=== PATIENT | male | born 1930 | race Caucasian/White ===

== ENCOUNTER 2016-07-02 10:44 | Inpatient (IN) ==
[2016-07-02 11:43] LABS: BASO% 0.2 % (0.0-0.8); EOS# 0.11 X1000 (0.0-0.7); EOS% 0.6 % (0.0-10.0); HEMATOCRIT 34.1 % (42.0-52.0); IMM GRAN# 0.06 X1000 (0.0-0.04); IMM GRAN% 0.3 % (0.0-0.5); LYMPH# 1.35 X1000 (1.2-3.4); LYMPH% 7.6 % (20.5-51.1); MANUAL DIFF NEEDED? NO; MCHC 35.2 g/dL (33-37); MCV 99.4 FL (81-99); MONO# 1.07 X1000 (0.11-0.59); MONO% 6.1 % (1.7-9.3); MPV 10.1 FL (7.4-10.4); NEUT% 85.2 % (42.2-75.2); PLT 236 X1000 (130-400); RBC 3.43 XMIL (4.7-6.1)
[2016-07-02 11:48] LABS: INR 1.07; PROTIME 11.3 Seconds (9.2-11.7); PTT 31.2 Seconds (22.0-36.0)
[2016-07-02 11:50] LABS: ALBUMIN 3.4 g/dL (3.5-5.0); MAGNESIUM 2.1 mg/dL (1.5-2.7); POTASSIUM 4.8 mmol/L (3.5-5.1); TOTAL BILIRUBIN 0.53 mg/dL (0.20-1.00); TOTAL PROTEIN 6.9 g/dL (6.3-8.3)
--- NOTE | 2016-07-02 12:42 | Diag Imaging Result Document ---
PROCEDURE NAME: CHEST-PORTABLE - 07/02/2016 AP PORTABLE CHEST, ERECT AT 1130 HOURS: FINDINGS: There is alveolar opacity in the right lower lobe which has worsened considerably since 08/05/2013. There are no more recent chest radiographs. There was no apparent abnormality in the right lower lobe on the CT scan of 01/17/2016. 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 IMPRESSION: Right lower lobe pneumonia.
[2016-07-02] MEDS ORDERED: ROCEPHIN 1 GM/NS 1 GM/50 ML IVPB IV ONE (13:06)
[2016-07-02] MEDS ORDERED: ZITHROMAX 500 MG/NS 500 MG/250 ML IVPB IV ONE (13:06)
[2016-07-02] MEDS ORDERED: LASIX IV ONE (13:07)
[2016-07-02] MEDS ORDERED: NS 1,000 ML IV ONE (13:08)
[2016-07-02] MEDS ORDERED: TORADOL IV PRN (13:08)
--- NOTE | 2016-07-02 13:14 | PROVIDER DOCUMENTATION ---
This chart was entered by John Kinsey Scribe, acting as scribe for Tian Chase MD. HPI-General Adult - General Stated Complaint: GENERALIZED WEAKNESS Time Seen by Provider: 07/02/16 10:44 Source: patient, family Allergies/Adverse Reactions: Patient Allergies Allergy/AdvReac Type Severity Reaction Status Date / Time codeine Allergy Unknown Verified 07/02/16 11:19 cetirizine HCl * AdvReac Unknown Verified 07/02/16 11:19 [From [facility]] Home Medications: Home Medication List Medication Instructions Recorded Confirmed Last Taken Type Aspirin 81 mg PO DAILY 08/02/13 07/02/16 07/01/16 History Brimonidine/Timolol Ophth Soln 1 drop OPH BID 08/02/13 10/26/15 10/26/15 06:30 History [Combigan Ophth Soln] Denosumab [Prolia] 60 mg SQ DIRECTED 08/02/13 10/26/15 06/10/13 History Furosemide [Lasix] 40 mg PO DAILY 08/02/13 07/02/16 07/01/16 History Isosorbide Mononitrate E.r. [Imdur] 60 mg PO DAILY 08/02/13 10/26/15 10/25/15 20 :00 History Leuprolide Acetate [Eligard] 7.5 mg SQ DIRECTED 08/02/13 07/02/16 07/01/16 History Niacin E.r. [Niaspan] 500 mg PO BID 08/02/13 10/26/15 10/25/15 20:00 History Potassium Chloride [Klor-Con 10] 10 meq PO DAILY 08/02/13 07/02/16 07/01/16 History Pravastatin Sodium [Pravachol] 20 mg PO DAILY 08/02/13 07/02/16 07/01/16 History Ranolazine E.r. [Ranexa] 500 mg PO QAM 08/02/13 07/02/16 07/01/16 History Sitagliptin Phosphate [Januvia] 100 mg PO DAILY 08/02/13 07/02/16 07/01/16 History Ubidecarenone/Vitamin E [Co Q-10 1 each PO BID 08/02/13 10/26/15 10/26/15 06:30 History 50 mg Softgel] Alpha Lipoic Acid 100 mg PO BID 10/25/15 10/26/15 10/26/15 06:30 History Amlodipine Besylate [Norvasc] 5 mg PO DAILY 10/25/15 07/02/16 07/01/16 History Apixaban [Eliquis] 2.5 mg PO BID 10/25/15 07/02/16 07/01/16 History Calcium Carbonate [Caltrate 600] 600 mg PO BID 10/25/15 07/02/16 07/01/16 History Enzalutamide [Xtandi] 4 cap PO HS 10/25/15 10/26/15 10/25/15 20:00 History Glipizide 5 mg PO BID 10/25/15 07/02/16 07/01/16 History Multivit-Min/FA/Lycopen/Lutein 1 each PO DAILY 10/25/15 07/02/16 07/01/16 History [Centrum Silver Tablet] Sotalol [Betapace] 80 mg PO BID 10/25/15 07/02/16 07/01/16 History Tamsulosin [Flomax] 0.4 mg PO DAILY 10/25/15 07/02/16 07/01/16 History Valsartan [Diovan] 320 mg PO DAILY 10/25/15 07/02/16 07/01/16 History Brimonidine/Timolol Ophth Soln 1 drop BID 07/02/16 07/02/16 07/01/16 History [Combigan Ophth Soln] - History of Present Illness -Gen Adult Nature of Presenting Problems: patient is a 86 y/o M that presents with one week of cough/congestion, shortness of breath that has gotten worse. Over the past few days patient has had generalized weakness with poor oral intake( fluids and solids). Denies fever /chills, n/v/d, or chest pain Location of Pain/Injury: reports: generalized Pain Radiation: reports: no radiation Quality of Pain: reports: other (weakness) Severity: reports: moderate Onset/Duration: reports: gradual, 1 week ago Timing: reports: still present, constant, getting worse Context/Activities at Onset: reports: none Modifying Factors: improves with: nothing Associated Symptoms: reports: cough, loss of appetite, sinus congestion/drainage , shortness of breath, weakness. denies: back/neck pain, chest pain, diarrhea, dizziness, EENT symptoms, fever/chills, genitourinary problems, nausea, vomiting Similar Symptoms Previously?: No Recently seen or treated by another doctor?: No Review of Systems - Adult - REVIEW OF SYSTEMS - ADULT Constitutional: reports: fatique. denies: chills, fever Eyes: reports: no symptoms reported Ears, Nose, Mouth & Throat: reports: sinus problem. denies: ear discharge, ear pain, throat pain, throat swelling Cardiovascular: denies: chest pain, palpitations, syncope Respiratory: reports: cough, shortness of breath. denies: pleurisy, wheezing Gastrointestinal: reports: poor appetite. denies: abdominal pain, constipation , diarrhea, nausea, vomiting Genitourinary: denies: dysuria, frequency, hematuria, urinary retention Musculoskeletal: reports: muscle weakness Integumentary: reports: no symptoms reported Neurological: reports: no symptoms reported Psychiatric: reports: no symptoms reported Endocrine: reports: no symptoms reported Hematologic/Lymphatic: reports: no symptoms reported Allergic/Immunologic: reports: no symptoms reported All Other Systems: Reviewed and Negative Past History - Adult - PAST MEDICAL HISTORY-ADULT Review of Records: reports: Old Records Reviewed, Nursing Assessment Review, Medications Reviewed Cardiovascular: reports: CHF, HTN, hyperlipidemia, MD Genitourinary: reports: prostate cancer Endocrine/Immune: reports: Diabetes Diabetes controlled by:: PO Meds - PRIOR SURGERIES/PROCEDURES Surgical/Procedure History: reports: CABG - IMMUNIZATION STATUS Childhood Immunizations: See Nurse Assessment Flu Vaccine: See Nurse Assessment - FAMILY HISTORY Family History: reviewed, not pertinent - SOCIAL HISTORY Smoking: non-smoker Living Situation: family Physical Exam-General - PHYSICAL EXAM-ADULT Initial Vital Signs Reviewed: Yes - CONSTITUTIONAL General Appearance: alert, no apparent distress - EYES Eyes: PERRL/EOMI, pink conjunctivae - HEAD, EARS, NOSE, MOUTH & THROAT HENMT: normocephalic/atraumatic, moist mucous membranes, normal ENT inspection - NECK Neck: full range of motion, normal inspection. negative: lymphadenopathy - RESPIRATORY Respiratory: no respiratory distress, no accessory muscle use, rhonchi ( throughout), wheezing (scattered) - CARDIOVASCULAR Cardiovascular: regular rate, rhythm, no edema, no murmur - GASTROINTESTINAL (ABDOMEN) Abdominal Exam: normal bowel sounds, non tender, soft, no organomegaly, no pulsatile mass - MUSCULOSKELETAL Extremity: normal range of motion, normal inspection, no pedal edema, no calf tenderness - SKIN Integumentary: normal color, normal turgor, warm/dry - NEUROLOGIC Neurologic: grossly normal, no motor/sensory deficits - PSYCHIATRIC Psych/Mental Status: normal mood/affect, normal thought content, normal thought process, oriented x 3 Progress - PLAN OF CARE/RESULTS Progress/Plan/Lab Results: Vital Signs Temp Pulse Resp BP Pulse Ox 07/02/16 11:15 44 L 26 H 172/57 95 07/02/16 11:14 98.4 F 45 L 25 H 173/60 94 L codeine Allergy (Verified 07/02/16 11:19) Unknown cetirizine HCl * [From [facility]] Adverse Reaction (Verified 07/02/16 11:19) Unknown Aspirin 81 mg PO DAILY 08/02/13 Brimonidine/Timolol Ophth Soln [Combigan Ophth Soln] 1 drop OPH BID 08/02/13 Denosumab [Prolia] 60 mg SQ DIRECTED 08/02/13 Furosemide [Lasix] 40 mg PO DAILY 08/02/13 Isosorbide Mononitrate E.r. [Imdur] 60 mg PO DAILY 08/02/13 Leuprolide Acetate [Eligard] 7.5 mg SQ DIRECTED 08/02/13 Niacin E.r. [Niaspan] 500 mg PO BID 08/02/13 Potassium Chloride [Klor-Con 10] 10 meq PO DAILY 08/02/13 Pravastatin Sodium [Pravachol] 20 mg PO DAILY 08/02/13 Ranolazine E.r. [Ranexa] 500 mg PO QAM 08/02/13 Sitagliptin Phosphate [Januvia] 100 mg PO DAILY 08/02/13 Ubidecarenone/Vitamin E [Co Q-10 50 mg Softgel] 1 each PO BID 08/02/13 Alpha Lipoic Acid 100 mg PO BID 10/25/15 Amlodipine Besylate [Norvasc] 5 mg PO DAILY 10/25/15 Apixaban [Eliquis] 2.5 mg PO BID 10/25/15 Calcium Carbonate [Caltrate 600] 600 mg PO BID 10/25/15 Enzalutamide [Xtandi] 4 cap PO HS 10/25/15 Glipizide 5 mg PO BID 10/25/15 Multivit-Min/FA/Lycopen/Lutein [Centrum Silver Tablet] 1 each PO DAILY 10/25/15 Sotalol [Betapace] 80 mg PO BID 10/25/15 Tamsulosin [Flomax] 0.4 mg PO DAILY 10/25/15 Valsartan [Diovan] 320 mg PO DAILY 10/25/15 Brimonidine/Timolol Ophth Soln [Combigan Ophth Soln] 1 drop BID 07/02/16 Laboratory 07/02/16 07/02/16 07/02/16 11:09 11:09 11:09 WBC RBC Hgb Hct MCV MCH MCHC RDW Std Deviation Plt Count MPV Immature Gran % (Auto) Neut % (Auto) Lymph % (Auto) [place] % (Auto) Eos % (Auto) Baso % (Auto) Immature Gran # (Auto) Neut # (Auto) Lymph # (Auto) [place] # (Auto) Eos # (Auto) Baso # (Auto) PT 11.3 INR 1.07 PTT (Actin FS) 31.2 Sodium Potassium Chloride Carbon Dioxide Anion Gap BUN Creatinine Estimated GFR/1.73 m2 BUN/Creatinine Ratio Glucose Calculated Osmolality Calcium Magnesium Total Bilirubin AST ALT Alkaline Phosphatase Creatine Kinase Troponin T 0.057 Yyf-[id number]-Oarbuqhbdgq Pept Total Protein Albumin Globulin Albumin/Globulin Ratio Plasma Lactate 1.5 07/02/16 07/02/16 07/02/16 11:09 11:09 11:09 WBC 17.65 H RBC 3.43 L Hgb 12.0 L Hct 34.1 L MCV 99.4 H MCH 35.0 H MCHC 35.2 RDW Std Deviation 14.0 Plt Count 236 MPV 10.1 Immature Gran % (Auto) 0.3 Neut % (Auto) 85.2 H Lymph % (Auto) 7.6 L [place] % (Auto) 6.1 Eos % (Auto) 0.6 Baso % (Auto) 0.2 Immature Gran # (Auto) 0.06 H Neut # (Auto) 15.03 H Lymph # (Auto) 1.35 [place] # (Auto) 1.07 H Eos # (Auto) 0.11 Baso # (Auto) 0.03 PT INR PTT (Actin FS) Sodium 125 L Potassium 4.8 Chloride 87 L Carbon Dioxide 22 L Anion Gap 16 BUN 59 H Creatinine 1.8 H Estimated GFR/1.73 m2 36 BUN/Creatinine Ratio 33 Glucose 201 H Calculated Osmolality 274 Calcium 9.0 Magnesium 2.1 Total Bilirubin 0.53 AST 25 ALT 15 Alkaline Phosphatase 67 Creatine Kinase 92 Troponin T Cyp-[id number]-Seejjjtwgoq Pept 52633 H Total Protein 6.9 Albumin 3.4 L Globulin 3.5 Albumin/Globulin Ratio 1.0 Plasma Lactate Orders Category Date Time Status Cardiac Monitoring DIRECTED Care 07/02/16 11:04 Active Oxygen Therapy- ED Nursing DIRECTED Care 07/02/16 11:04 Active Saline Loc NOW Care 07/02/16 11:04 Active CHEST-PORTABLE [RAD] Stat Exams 07/02/16 11:07 Completed BLOOD CULTURE [BLDCUL] Stat Lab 07/02/16 11:09 Ordered CBC WITH ELECTRONIC DIFF [HEME] Stat Lab 07/02/16 11:09 Completed CK PROFILE [SP CHEM] Stat Lab 07/02/16 11:09 Completed COMPREHENSIVE METABOLIC PANEL [CHEM] Stat Lab 07/02/16 11:09 Completed LACTATE, PLASMA [CHEM] Stat Lab 07/02/16 11:09 Completed MAGNESIUM [CHEM] Stat Lab 07/02/16 11:09 Completed PRO B-NATRIURETIC PEPTIDE Stat Lab 07/02/16 11:09 Completed PROTIME WITH INR [COAG] Stat Lab 07/02/16 11:09 Completed PTT [COAG] Stat Lab 07/02/16 11:09 Completed TROPONIN T Stat Lab 07/02/16 11:09 Completed Azithromycin 500 mg/Ns [Zithromax 500 mg/Ns] Med 07/02/16 13:06 Active 500 mg in 250 ml IV NOW CefTRIAXONE 1 GM/NS [Rocephin 1 gm/Ns] Med 07/02/16 13:06 Active 1 gm in 50 ml IV NOW EKG [EKG] Stat Ther 07/02/16 11:04 Ordered Result Diagrams: 07/02/16 11:09 07/02/16 11:09 - EKG 1 Time of EKG reading by physician:: 11:04 EKG Read and Signed by:: Kolby Zavaleta EKG Interpretation (*Must complete 3 of following elements*): Abnormal Rate: 44 Rhythm: sinus bradycardia with 1st degree av block QRS: RBB, other (left anterior fascicular block) [place] Interval: normal ST Wave: non-specific ST changes - XRAY 1 XRAY Study: Chest Impression: Abnormal XRAY Interpretation: RLL pneumonia - CONSULTS/PCP/HOSPITALIST Notification #1 *Consult/PCP/Hospitalist*: Time Discussed: 13:07 Reason/Comments: CHF , Pneumonia Consult Disposition: Admit Departure - Departure Time of Disposition Decision: 13:07 DIAGNOSIS: RLL pneumonia Qualifiers: Pneumonia type: due to unspecified organism Qualified Code(s): J18.1 - Lobar pneumonia, unspecified organism CHF (congestive heart failure) Qualifiers: Congestive heart failure type: systolic Congestive heart failure chronicity: acute Qualified Code(s): I50.21 - Acute systolic (congestive) heart failure Disposition: ADMITTED INPATIENT 09 Certified Medical Emergency: Emergent Condition: Stable - Critical Care Note Total Time (mins): 35 Critical Care Statement: This patient required my direct personal management to treat or rule out processes, the absence of which, could potentiallly result in sudden, clinically significant life or limb threatening deterioration. This chart was documented by the indicated scribe, (John Kinsey, Scribe) and accurately reflects the services I performed and decisions made by me, Tian Chase MD, as attested by the provider's signature.
--- NOTE | 2016-07-02 13:43 | EKG Report ---
Test Performed on : 07/02/2016 11:04:02 AM Test Reason : Chest Pain Blood Pressure : / mmHG Vent. Rate : 044 BPM Atrial Rate : 044 BPM P-R Int : 268 ms QRS Dur : 140 ms QT Int : 598 ms P-R-T Axes : -21 -48 062 degrees QTc Int : 511 ms Marked sinus bradycardia. with 1st degree AV block. Right bundle branch block Left anterior fascicular block Bifascicular block Inferior infarct (cited on or before 26-OCT-2015) Cannot rule out Anterior infarct , age undetermined Abnormal ECG When compared with ECG of 26-OCT-2015 12:15, premature atrial complexes. are no longer present Minimal criteria for Anterior infarct are now present Unconfirmed Result
[2016-07-02] MEDS ORDERED: DUONEB (A & A) INH SCH (15:30)
[2016-07-02] MEDS: FLOMAX PO SCH (19:30)
--- NOTE | 2016-07-02 20:26 | HISTORY AND PHYSICAL ---
CHIEF COMPLAINT: Cough and generalized weakness. HISTORY OF PRESENT ILLNESS: Mr. Gonzalez is an 86-year-old gentleman with a long history of type 2 diabetes mellitus, atherosclerotic cardiovascular disease, paroxysmal atrial fibrillation and prostate cancer. He was brought to the emergency room by ambulance today after he was too weak to get out of bed. He related an approximately 10-day history of cough, chest congestion and shortness of breath that has been progressively worsening. Up until several days ago he was coughing up some yellowish mucus but has not coughed as much up recently. His appetite has been diminished. He has had very little liquid or solid food in the last 24-36 hours. He denies fever, chills, nausea, vomiting, diarrhea, or chest pain. PAST MEDICAL HISTORY: Positive for hypertension with chronic kidney disease, paroxysmal atrial fibrillation status post cardioversion last November, history of osteoporosis although last DEXA was relatively normal, and a history of prostate cancer PAST SURGICAL HISTORY: Remarkable for CABG in 1994, right total knee arthroplasty in 2013. ALLERGIES: He is allergic to Zyrtec and codeine. HOME MEDICATIONS: Calcium and vitamin D twice a day, Coenzyme Q10 at 50 mg twice a day, Combigan eye drops in the right eye twice a day, Diovan 320 mg daily, Eligard 7.5 mg subcutaneous once a month, Eliquis 2.5 mg twice a day, Flomax 0.4 mg at bedtime, Januvia 100 mg q.a.m., Lasix 40 mg q.a.m., multivitamin 1 daily, Norvasc 5 mg daily, Pravachol 20 mg at bedtime, Prolia 60 mg every 6 months, Ranexa 500 mg q.a.m., Zytiga 1000 mg daily, valproic acid 600 mg twice a day, aspirin 81 mg daily, glipizide 5 mg b.i.d., Imdur 60 mg 1 q.a.m., potassium chloride 10 mEq daily, prednisone 1.25 mg twice a day, sotalol 80 mg 1/2 tablet twice a day. FAMILY HISTORY: Noncontributory. SOCIAL HISTORY: He is and lives with his . He is retired. He does not use alcohol or tobacco. REVIEW OF SYSTEMS: General: No headache, fever, chills, night sweats, or weight loss. 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 Respiratory: As above with frequent cough but no pleuritic chest pain. He has no history of COPD or wheezing. No hemoptysis. Cardiovascular: No recent angina. No palpitations, syncope or near syncope. Gastrointestinal: His appetite has been diminished for several days. No hematemesis, melena or bright red blood per rectum. He does report mild constipation. Genitourinary: No dysuria. He has a history of chronic kidney disease with BUN baseline of 37, creatinine 1.4. Endocrine: No history of thyroid disease. Longstanding diabetes for approximately 20 years. Previous metformin was stopped due to chronic kidney disease. Neurologic: No history of strokes or seizures. Psychiatric: No history of memory or mood disorders. PHYSICAL EXAMINATION: VITAL SIGNS: Temperature 97.8 degrees, blood pressure 164/52, pulse 71 (as low as 44 in the emergency room), respiratory rate 14, O2 saturation 97% on nasal cannula. GENERAL APPEARANCE: Alert, pleasant, conversational elderly gentleman with relatively recent purple ecchymoses on his upper forehead. HEENT: Pupils equal, round, reactive to light. The left cornea is quite cloudy. Extraocular movements are intact. Oropharynx is benign. NECK: Supple. No JVD, thyromegaly or adenopathy. CHEST EXAMINATION: Lungs are clear in the apices but there are a few crackles and some soft musical wheezing in both bases, with expiration. Air movement is good. CARDIOVASCULAR: There is slow regular rhythm with normal S1, S2. No S3, S4, murmurs are appreciated. ABDOMEN: Soft, flat, nontender with active bowel sounds. There is no guarding or rebound tenderness present. Bowel sounds are active. EXTREMITIES: No cyanosis, clubbing, or edema. Toes are pink and warm. NEUROLOGIC EXAMINATION: He is alert. His mental status seems to be normal. Cranial nerve examination is unremarkable. He moves all extremities on command. Gait is not tested. DATABASE: Chest x-ray shows alveolar opacities in the right lower lobe new from chest CT 4 months ago. White blood count 17,600, hemoglobin 12.0, hematocrit 34.1, sodium 125, glucose 201, BUN 59, creatinine 1.8, albumin 3.4, proBNP 13,728. ASSESSMENT: 1. Cough and weakness with chest x-ray evidence of right lower lobe pneumonia. He has been given a dose of Rocephin and started on Zithromax as well. 2. Severe generalized weakness with a history of 2 recent falls during the night. His states that she heard him fall when he got up to go to the bathroom. Today he was too weak for her to get him in the car and she had to call an ambulance to bring him here. 3. Type 2 diabetes mellitus with last A1c approximately 7.7. 4. Atherosclerotic cardiovascular disease with history of atrial fibrillation, currently in sinus rhythm with bradycardia due to the sotalol. His proBNP is quite elevated. A transesophageal echo done prior to his cardioversion showed minimally diminished left ventricular ejection fraction with well-preserved left ventricular function with some left ventricular hypertrophy. I suppose he has chronic diastolic congestive heart failure with possibly an acute component superimposed. I can find no previous proBNP measurements in his hospital record. 5. Metastatic prostate cancer treated by Dr. Crandall and Dr. Joseph, currently being treated with Eligard and Zytiga for castration recurrence. TREATMENT PLAN: Admit for IV fluids and antibiotics. He does seem to have slight worsening of his chronic kidney disease along with mild hyponatremia. I will ask Dr. Bennett to consult on him. cc: Jb Cantrell MD [facility]
[2016-07-02] MEDS: BETAPACE PO SCH (20:29)
[2016-07-02] MEDS: GLUCOTROL PO SCH (20:29)
[2016-07-02] MEDS: ELIQUIS PO SCH (20:29)
[2016-07-02] MEDS: COMBIGAN OPHTH SOLN RIGHT EYE SCH (20:29)
[2016-07-02] MEDS: PATIENT'S OWN MED PO SCH (20:30)
[2016-07-02] MEDS: PRAVACHOL PO SCH (20:30)
[2016-07-03] MEDS: PREDNISONE PO SCH ×2 (05:55→16:40)
[2016-07-03] MEDS: ROCEPHIN 1 GM/NS 1 GM/50 ML IVPB IV SCH (05:55)
[2016-07-03] MEDS ORDERED: NS 1,000 ML ONE (06:00)
[2016-07-03 06:42] LABS: HEMOGLOBIN A1C 7.1 % (4.8-6.0)
[2016-07-03 07:05] LABS: CALCIUM 8.6 mg/dL (8.8-10.2); POTASSIUM 4.1 mmol/L (3.5-5.1)
[2016-07-03] MEDS: FLOMAX PO SCH (08:52)
[2016-07-03] MEDS: NORVASC PO SCH (08:52)
[2016-07-03] MEDS: BETAPACE PO SCH ×2 (08:53→21:37)
[2016-07-03] MEDS: CENTRUM SILVER PO SCH (08:53)
[2016-07-03] MEDS: ELIQUIS PO SCH ×2 (08:53→21:37)
[2016-07-03] MEDS: GLUCOTROL PO SCH ×3 (08:54→21:37)
[2016-07-03] MEDS: RANEXA PO SCH (08:55)
[2016-07-03] MEDS: ASPIRIN PO SCH (08:55)
[2016-07-03] MEDS: JANUVIA PO SCH ×2 (08:55→15:37)
[2016-07-03] MEDS: LASIX PO SCH (08:56)
[2016-07-03] MEDS ORDERED: IMDUR PO SCH (09:00)
[2016-07-03] MEDS: KLOR-CON PO SCH (10:26)
[2016-07-03] MEDS: ZITHROMAX PO SCH (10:27)
[2016-07-03] MEDS: DIOVAN PO SCH (10:27)
[2016-07-03] MEDS: PRAVACHOL PO SCH (10:28)
[2016-07-03] MEDS: COMBIGAN OPHTH SOLN RIGHT EYE SCH ×2 (10:30→21:37)
--- NOTE | 2016-07-03 17:13 | CONSULTATION ---
DATE OF CONSULTATION: 07/03/2016 CHIEF COMPLAINT: Shortness of breath, weakness. HISTORY: [id number]-old male patient of our service. He presented to the Emergency Room on 07/02/2016 with complaints of about several days, probably up to two weeks, of increasing shortness of breath, cough productive of some yellowish phlegm, some weakness. The patient had fallen a couple of times at home. About a month ago, he fell going downstairs to his backyard. He denies having syncope. He had some discomfort in the chest when coughing, however no angina pectoris. Upon presentation to the emergency room, they did a chest x-ray that is suspicious for pneumonia. This was reported by Dr. Sandra. Right lower lobe pneumonia. EKG done on presentation shows sinus bradycardia with a right bundle branch block. The patient has been admitted for management of pneumonia. At the time of initial presentation, they checked several blood markers, including a proBNP that was very high at 13,728. They also checked a troponin level that was 0.057. The patient denies having any swelling of the legs. PAST HISTORY: His past history is positive for paroxysmal atrial fibrillation for a number of years. He has undergone cardioversion in the past. He has had history of coronary heart disease, previous myocardial infarction, hypertension, hyperlipidemia, diabetes mellitus type 2, chronic kidney disease, degenerative joint disease. 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 He has had surgical history positive for coronary bypass in 1994. He had a PABON graft to LAD, vein graft to circumflex. He has had left knee arthroplasty. He has had cardioversion in October of 2015. He has maintained sinus rhythm since then. SOCIAL HISTORY: He is , retired, lives at home, not a smoker. FAMILY HISTORY: Mother and brother had CHF. HOME MEDICATIONS: Home medications at the time of this admission included prednisone 1.25 twice a day, Zytiga 1000 mg at bedtime, Prolia (denosumab) 60 mg as directed subcutaneously, isosorbide mononitrate 60 daily, coenzyme Q10 twice a day, Valsartan 320 daily, Flomax 0.4 mg daily, sotalol 80 twice a day, Januvia 100 daily, Ranexa 500 once a day, pravastatin 20 daily, potassium chloride 10 mEq daily, multivitamins once a day, Eligard 7.5 as directed, furosemide 40 mg daily, calcium carbonate 600 twice a day, aspirin 81 mg daily, apixaban 2.5 twice a day, amlodipine 5 mg daily. ALLERGIES: Patient reports being allergic to codeine and cetirizine. REVIEW OF SYSTEMS: Beyond on what I have reported is really noncontributory. He has not had any angina pectoris, no stroke, no edema. No presyncope. PHYSICAL EXAMINATION: Vital signs: At the time of this admission, blood pressure 163/49, pulse 51, temperature 98.4, respirations 20, weighs 160 pounds. General: He is awake, alert, oriented, in no distress. He has some excoriation on the forehead. His neck veins are not really that prominent. I do not hear cervical bruits. Chest: Chest shows diminished breath sounds, especially in the right lung field. There is no dullness to percussion. There are some crepitations scattered bilaterally. Cardiac: Heart sounds are regular, rhythmic. There is a systolic murmur over the aortic area, 2/6. Abdomen: Soft. There is no hepatomegaly. There are no bruits. No hernia. Extremities: Extremities show no edema. Pulses are diffusely diminished. I do not see any lesions on the legs. Neurological exam: He is awake, alert, oriented x3, follows commands, moves four extremities. LABORATORY: Blood work: Sodium 138, potassium 4.1, BUN 42, creatinine 1.5, chloride 101, carbon dioxide 27. Hemoglobin A1c is 7.1, CK 92, PT 11.2, INR 1.87, white count 17,650, hemoglobin 12.0, platelet count 236,000. IMPRESSION: 1. Patient presenting with increasing dyspnea, cough productive of yellow phlegm, with an abnormal chest x-ray and leukocytosis. All this is consistent with right lower lobe pneumonia. 2. Patient has history of paroxysmal atrial fibrillation, now with sinus bradycardia and right bundle branch block. This is probably secondary to the effect of sotalol. The patient was supposed to be taken 40 mg twice a day; however, he has continued to take 80 mg twice a day. 3. His renal function has decreased. 4. History of hypertension. 5. History of coronary heart disease. Bypass surgery. 6. Chronic kidney disease. 7. History of prostate cancer in the past. RECOMMENDATIONS: At this point in time, I would suggest to cut down sotalol to 40 mg twice a day to minimize the bradycardic effect of this medication. His renal function is impaired, and sotalol is excreted by the kidney. We will monitor his hospital course. At this point in time, I believe that there is no question that he does have pneumonia. We have requested inflammatory markers to double check on it. Sedimentation rate and C-reactive protein are coming. Further advice will be forthcoming. Thank you again for the opportunity to participate in his evaluation. cc: MD Jb Bobby MD
[2016-07-03] MEDS: PATIENT'S OWN MED PO SCH (21:37)
[2016-07-04] MEDS: PREDNISONE PO SCH (05:31)
[2016-07-04] MEDS: ROCEPHIN 1 GM/NS 1 GM/50 ML IVPB IV SCH (05:31)
[2016-07-04 06:12] LABS: MANUAL DIFF NEEDED? NO
[2016-07-04 06:38] LABS: BASO% 0.1 % (0.0-0.8); EOS# 0.12 X1000 (0.0-0.7); EOS% 1.8 % (0.0-10.0); HEMATOCRIT 29.4 % (42.0-52.0); HEMOGLOBIN 10.1 g/dL (14.0-18.0); IMM GRAN# 0.05 X1000 (0.0-0.04); IMM GRAN% 0.7 % (0.0-0.5); LYMPH% 17.8 % (20.5-51.1); MCH 34.7 PG (27-31); MCHC 34.4 g/dL (33-37); MONO# 0.56 X1000 (0.11-0.59); MONO% 8.3 % (1.7-9.3); NEUT% 71.3 % (42.2-75.2); PLT 207 X1000 (130-400); RBC 2.91 XMIL (4.7-6.1)
[2016-07-04 06:45] LABS: MAGNESIUM 2.1 mg/dL (1.5-2.7); POTASSIUM 3.9 mmol/L (3.5-5.1)
--- NOTE | 2016-07-04 06:45 | EKG Report ---
Test Performed on : 07/04/2016 06:09:26 AM Test Reason : bradycardia Blood Pressure : / mmHG Vent. Rate : 054 BPM Atrial Rate : 054 BPM P-R Int : 204 ms QRS Dur : 156 ms QT Int : 532 ms P-R-T Axes : 074 -65 065 degrees QTc Int : 504 ms Sinus bradycardia. Right bundle branch block Left anterior fascicular block Bifascicular block Abnormal ECG When compared with ECG of 02-JUL-2016 11:04, MI interval has decreased Minimal criteria for Anterior infarct are no longer present Confirmed by Tamia AMOR, Jb Li ([id number]) on 07/06/2016 9:23:29 PM
[2016-07-04] MEDS ORDERED: CEFTIN PO SCH (09:00)
[2016-07-04] MEDS: ASPIRIN PO SCH (10:21)
[2016-07-04] MEDS: GLUCOTROL PO SCH (10:22)
[2016-07-04] MEDS: PRAVACHOL PO SCH (10:22)
[2016-07-04] MEDS: ELIQUIS PO SCH (10:23)
[2016-07-04] MEDS: ZITHROMAX PO SCH (10:24)
[2016-07-04] MEDS: JANUVIA PO SCH (10:24)
[2016-07-04] MEDS: DIOVAN PO SCH (10:25)
[2016-07-04] MEDS: BETAPACE PO SCH (10:26)
[2016-07-04] MEDS: FLOMAX PO SCH (10:27)
[2016-07-04] MEDS: LASIX PO SCH (10:28)
[2016-07-04] MEDS: CENTRUM SILVER PO SCH (10:28)
[2016-07-04] MEDS: KLOR-CON PO SCH (10:28)
[2016-07-04] MEDS: NORVASC PO SCH (10:30)
[2016-07-04] MEDS: COMBIGAN OPHTH SOLN RIGHT EYE SCH (10:30)
[2016-07-04] MEDS: RANEXA PO SCH (10:31)
--- NOTE | 2016-07-04 10:34 | DISCHARGE SUMMARY ---
ADMISSION DATE: 07/02/2016 DISCHARGE DATE: 07/04/2016 FINAL DIAGNOSES: 1. Right lower lobe community-acquired pneumonia. 2. Type 2 diabetes mellitus. 3. Atherosclerotic cardiovascular disease with a history of atrial fibrillation. 4. Metastatic prostate cancer. 5. Chronic diastolic congestive heart failure. PRESENT ILLNESS: Mr. Gonzalez is an 86-year-old gentleman, who was brought to the emergency room because he was too weak to get out of bed at home. He also related a 10-day history of progressive cough, chest congestion and shortness of breath, but no fever or chills. PAST MEDICAL HISTORY: Remarkable for hypertension, chronic kidney disease, paroxysmal atrial fibrillation and history of metastatic prostate cancer. PHYSICAL EXAMINATION: Vital Signs: Temperature 97.8 degrees, pulse 44-71. General Appearance: He is an alert, conversational gentleman with pain. Lungs: Remarkable features of the examination were some crackles and soft musical wheezing in both lung bases with expiration. Air movement was good. LABS AND X-RAYS: Chest x-ray showed alveolar opacities in the right lower lobe. White blood count 17,600. BUN 59, creatinine 1.8. ProBNP 13,728. HOSPITAL COURSE: He was admitted to the medical floor, treated with intravenous Zithromax and Rocephin. He was seen by physical therapy due to his generalized weakness and history of falling several times recently at home. His blood sugars were excellent fasting, but approximately 200- 240 in the afternoon after eating. His strength and ability to ambulate improved and he was seen by physical therapy who recommended some home physical therapy as followup. He has a 4-wheeled walker and will continue to use this to reduce his risk of falling. He has an appointment tomorrow to see Dr. Joseph for an Eligard injection and is to keep this appointment. He is return to my office in 1-2 weeks for followup. For review of the probability of some chronic congestive heart failure, he was seen by Dr. Bennett, who reduced his sotalol to 40 mg twice a day. His bradycardia improved. He has a regular signaler in [place] and will continue to see him. DISCHARGE MEDICATIONS: 1. Amlodipine 5 mg daily. 2. Eliquis 2.5 mg twice a day. 3. Aspirin 81 mg daily. 4. Combigan ophthalmic solution 1 drop in the right eye b.i.d. 5. Cefuroxime 250 mg q. 12 hours for 5 days. 6. Furosemide 40 mg q.a.m. 7. Glipizide 5 mg b.i.d. 8. Multivitamins with minerals 1 daily. 9. Zytiga 1000 mg at bedtime. 10. Potassium chloride 10 mEq daily. 11. Pravastatin 20 mg at bedtime. 12. Prednisone 1.25 mg twice a day. 13. Ranexa 500 mg q.a.m. 14. Sitagliptin 100 mg daily. 15. Sotalol 40 mg q. 12 hours. 16. Tamsulosin 0.4 mg at bedtime. 17. Valsartan 320 mg daily. cc: MD Vin Jaimes MD
[2016-07-04 12:20] VITALS: BP 163/41
== END 2016-07-04 13:36 | disposition home health service (06) ==
LOC: ED 10:44 → 4N 13:58
PROVIDERS: ADMIT Internal Medicine; ATTEND Internal Medicine